=== PATIENT | male | born 1950 | race Caucasian/White ===

== ENCOUNTER → 2018-01-22 | Outpatient (CLI) | payer MEDICARE, OTHER ==
--- NOTE | 2018-01-22 15:44 | US ---
EXAMINATION TYPE: US kidneys/renal and bladder DATE OF EXAM: 01/22/2018 COMPARISON: CLINICAL HISTORY: UTI R39.0. Hx of UTI's, Hx of prostate enlargement EXAM MEASUREMENTS: Right Kidney: 11.7 x 4.1 x 5.5 cm Left Kidney: 10.9 x 5.0 x 5.9 cm Post Void Residual Volume: 5.3 mL Right Kidney: Inferior cystic appearing lesion in renal sinus - 0.8 x 1.1 x 0.8 cm Left Kidney: Lobulated contour of the left kidney may relate to parenchymal scarring. Bladder: Prostate seen protruding within the bladder. Prostate measuring about = 6.6 x 3.3 x 3.4 cm . There is a serrated appearance of the urinary bladder contour, which can be seen in chronic outlet obstruction. Bilateral Jets not visualized Normal Post Void Residual: Yes There is no evidence for hydronephrosis at this point in time. No nephrolithiasis is seen. No raya s are identified. The urinary bladder is anechoic. IMPRESSION: 1. Undulating and serrated contour of the urinary bladder that can be seen as sequela of chronic outl et obstruction given the patient's prostatic enlargement and impression upon the urinary bladder. 2. Benign-appearing left renal sinus cyst.
== END | disposition home or self-care (01) ==
LOC: RADUSWWP 14:07
PROVIDERS: ATTEND Family Medicine
DX: N28.1 Cyst of kidney, acquired (principal); N40.1 Benign prostatic hyperplasia with lower urinary tract symptoms; N13.9 Obstructive and reflux uropathy, unspecified; N32.89 Other specified disorders of bladder
CPT/HCPCS: 76770

== ENCOUNTER → 2018-05-11 | Outpatient (CLI) | payer MEDICARE, OTHER ==
--- NOTE | 2018-05-11 16:45 | MR ---
EXAMINATION TYPE: MR knee LT wo con DATE OF EXAM: 05/11/2018 COMPARISON: None HISTORY: Left knee pain TECHNIQUE: Multiplanar, multisequence imaging of the left knee is performed without IV contrast. FINDINGS: MEDIAL MENISCUS: There is increased signal within the posterior horn medial meniscus compatible with internal derangement or degenerative change. Anterior horn medial meniscus has very minimal medial in creased signal which may be degenerative in nature. LATERAL MENISCUS: Very minimal increased signal may be within the posterior horn lateral meniscus whi ch can be degenerative in nature. Anterior horn lateral meniscus appears intact. CRUCIATE LIGAMENTS: The anterior and posterior cruciate ligaments are intact and unremarkable. COLLATERAL LIGAMENTS: The medial collateral ligament and lateral collateral ligament complex are inta ct and unremarkable. EXTENSOR MECHANISM: Visualized quadriceps and patellar tendons are intact. EFFUSION: No significant suprapatellar joint effusion. POPLITEAL CYST: No popliteal/dailey cyst. TRICOMPARTMENT SPACES: Preserved CARTILAGE: Minimal thinning may be present within the medial and lateral compartment joint spaces. Th ere is loss of articular cartilage along the superior posterior patella. Some increased osseous signa l is within the patella. The articular surface of the anterior femur appears intact. Correlate for ch ondromalacia. BONE MARROW SIGNAL: No additional focal signal abnormality within the osseous structures is evident. OTHER: No additional significant abnormality is appreciated. IMPRESSION: 1. Loss of the posterior superior patellar cartilage. There is some adjacent signal abnormality withi n the posterior patella. Correlate for chondromalacia. 2. Mild internal derangement or degenerative change of the posterior medial lateral menisci.
== END ==
LOC: RADMRIMAIN 11:06
PROVIDERS: ATTEND Family Medicine
DX: M23.322 Other meniscus derangements, posterior horn of medial meniscus, left knee (principal); M23.352 Other meniscus derangements, posterior horn of lateral meniscus, left knee

== ENCOUNTER 2020-08-10 18:07 | Emergency (ER) | payer MEDICARE, OTHER ==
[2020-08-10] MEDS ORDERED: SODIUM CHLORIDE 0.9% 1,000 ML IV STA (18:46)
[2020-08-10 19:21] LABS: Basophils % (A) 0 %; Eosinophils # (A) 0.3 k/uL (0-0.7); Eosinophils % (A) 3 %; HCT 50.6 % (39.0-53.0); Lymphocytes # (A) 0.2 k/uL (1.0-4.8); Lymphocytes % (A) 2 %; MCH 30.1 pg (25.0-35.0); MCHC 33.5 g/dL (31.0-37.0); MCV 89.9 fL (80.0-100.0); Mean Platelet Volume 7.3; Monocytes # (A) 0.5 k/uL (0-1.0); Monocytes % (A) 5 %; Neutrophils # (A) 8.1 k/uL (1.3-7.7); Neutrophils % (A) 89 %; Platelet Count 184 k/uL (150-450); RBC 5.62 m/uL (4.30-5.90); WBC 9.2 k/uL (3.8-10.6)
--- NOTE | 2020-08-10 19:33 | XR ---
EXAMINATION: XR chest 2V DATE AND TIME: 08/10/2020 7:21 PM CLINICAL INDICATION: PHH; fever weakness TECHNIQUE: Departmental protocol COMPARISON: 08/26/2009 FINDINGS: The lungs demonstrate a 5 cm ill-defined consolidative opacity medially within the left upper lobe. I n the left midlung zone laterally is a subtle 2 cm ill-defined opacity. Both these findings are not s een on the prior radiograph. The pleural spaces are negative. The cardiac silhouette is not enlarged. The remainder of the mediastinal silhouette is unremarkable. The skeletal structures and soft tissues are negative for acute findings. IMPRESSION: Two left-sided ill-defined pulmonary opacities, can correlate with a clinical diagnosis of developing bronchopneumonia.
[2020-08-10 19:34] LABS: ALT 20 U/L (4-49); AST 22 U/L (17-59); African American GFR (CKD) >90 (>60 ml/min/1.73 sqM); Albumin 3.9 g/dL (3.5-5.0); Alkaline Phosphatase 109 U/L (38-126); Anion Gap 11 mmol/L; Blood Urea Nitrogen 17 mg/dL (9-20); Calcium 9.5 mg/dL (8.4-10.2); Carbon Dioxide 23 mmol/L (22-30); Chloride 103 mmol/L (98-107); Glucose 129 mg/dL (74-99); Lipase 69 U/L (23-300); Non-African American GFR(CKD) 81 (>60 ml/min/1.73 sqM); Potassium 4.2 mmol/L (3.5-5.1); Sodium 137 mmol/L (137-145); Total Bilirubin 0.7 mg/dL (0.2-1.3); Total Protein 6.8 g/dL (6.3-8.2)
[2020-08-10 20:14] LABS: Appearance,Urine Clear (Clear); Bilirubin,Urine Negative (Negative); Blood,Urine Moderate (Negative); Color,Urine Yellow; Glucose,Urine (UA) Negative (Negative); Ketones,Urine 2+ (Negative); Leukocyte Esterase,Urine Small (Negative); Mucus,Urine Rare /hpf; Nitrite,Urine Negative (Negative); Protein,Urine 3+ (Negative); RBC,Urine 4 /hpf (0-5); Specific Gravity,Urine 1.024 (1.001-1.035); Squamous Epithelial Cell,Urine <1 /hpf (0-4); Urobilinogen,Urine <2.0 mg/dL (<2.0); WBC,Urine 32 /hpf (0-5)
[2020-08-10] MEDS ORDERED: SODIUM CHLORIDE 0.9% 500 ML 500 ML IV ONE (20:21)
[2020-08-10] MEDS ORDERED: SODIUM CHLORIDE 0.9% 1,000 ML IV ONE (20:21)
--- NOTE | 2020-08-10 20:24 | ED ---
Weakness HPI - General Chief complaint: Weakness Stated complaint: Abd pain/sweats/nausea Time Seen by Provider: 08/10/20 18:10 Source: patient Mode of arrival: ambulatory - History of Present Illness Initial comments: 6-year-old male with past history of MS who presents emergency Department with reported nausea and poor appetite. Patient reports to feeling generally weak for the past 3 days. Admits that he is able hold down water however has not been able to hold down any food. Reports to significant nausea with dry heaving. Denies emesis. Denies any abdominal pain. No chest pain or shortness of breath. Denies cough. No sick contacts with similar symptoms. Admits that his urine has been darker in coloration. He does straight cath due to history of BPH. Denies diarrhea, constipation, melenic stools or hematochezia. Admits to chills however has not recorded any fevers at home. No contact with Covid positive contacts. No other alleviating, precipitating or modifying factors - Related Data Previous Rx's Medication Instructions Recorded Levofloxacin [Levaquin] 750 mg PO DAILY 1 Days #5 tab 08/10/20 Ondansetron Odt [Zofran Odt] 4 mg PO Q8HR PRN #10 tab 08/10/20 Allergies Allergy/AdvReac Type Severity Reaction Status Date / Time No Known Allergies Allergy Verified 08/10/20 18:13 Review of Systems ROS Statement: Those systems with pertinent positive or pertinent negative responses have been documented in the HPI. ROS Other: All systems not noted in ROS Statement are negative. Past Medical History Past Medical History: GERD/Reflux Additional Past Medical History / Comment(s): MS History of Any Multi-Drug Resistant Organisms: None Reported Past Surgical History: Hernia Repair Additional Past Surgical History / Comment(s): lung surgery. Past Psychological History: Depression Smoking Status: Never smoker Past Alcohol Use History: Occasional Past Drug Use History: None Reported General Exam General appearance: alert, in no apparent distress Head exam: Present: atraumatic, normocephalic, normal inspection Eye exam: Present: normal appearance, PERRL, EOMI. Absent: scleral icterus, conjunctival injection, periorbital swelling ENT exam: Present: normal exam, mucous membranes moist Neck exam: Present: normal inspection. Absent: tenderness, meningismus, lymphadenopathy Respiratory exam: Present: normal lung sounds bilaterally. Absent: respiratory distress, wheezes, rales, rhonchi, stridor Cardiovascular Exam: Present: normal rhythm, tachycardia, normal heart sounds. Absent: systolic murmur, diastolic murmur, rubs, gallop, clicks GI/Abdominal exam: Present: soft, normal bowel sounds. Absent: distended, tenderness, guarding, rebound, rigid Extremities exam: Present: normal inspection, full ROM, normal capillary refill. Absent: tenderness, pedal edema, joint swelling, calf tenderness Back exam: Present: normal inspection Neurological exam: Present: alert, oriented X3, CN II-XII intact Psychiatric exam: Present: normal affect, normal mood Skin exam: Present: warm, dry, intact, normal color. Absent: rash Course Vital Signs 08/10/20 08/10/20 18:08 21:08 Temperature 100 F H 99.6 F Pulse Rate 124 H 100 Respiratory 18 19 Rate Blood Pressure 138/87 151/96 O2 Sat by Pulse 96 96 Oximetry EKG Findings - EKG Comments: EKG Findings:: EKG demonstrates sinus tachycardia with a ventricular rate of 113. [place] interval 162. QRS 80. QTC of 427. No acute ST segment elevations or depressions concerning for ischemic changes Medical Decision Making - Medical Decision Making Upon arrival patient was placed into room 7. A history of physical exam was performed. Patient does have a temperature 100F. Pulse rate is 124. IV is established. Patient was given a 2500 mL bolus of normal saline. Laboratory studies were conducted and patient is swabbed for Covid. He is sent for chest x-ray as well as a CT of his abdomen and pelvis. Patient does straight cath himself for a urine specimen which demonstrates 32 white blood cells with rare mucous. Covid not detected. Chest x-ray does demonstrate to left-sided ill- defined pulmonary opacities which can correlate with developing bronchopneumonia. CT of the patient's abdomen and pelvis radiates evidence of cystitis with marked prostate hypertrophic mass effect upon the urinary bladder. Patient was given a dose of Zofran. He is able to tolerate fluids by mouth. I did discuss diagnosis, differential treatment options. Patient does not want remain hospitalized at this time. He does have improvement to his heart rate down to 96. Temp is 99.6. Blood cultures and urine cultures are sent. The patient was given a dose of Rocephin and azithromycin. I did discuss the diagnosis and treatment plan. Patient will be discharged home at this time on Levaquin for his pneumonia and UTI. Patient will follow up with his primary care doctor in 2-4 days for reevaluation. Daughter is at bedside and agrees to this treatment plan. Strict return parameters were given to the patient that he must return for any new or worsening symptoms. Patient given a Zofran starter pack to go home. Patient discharged in stable condition - Lab Data Result diagrams: 08/10/20 19:05 08/10/20 19:05 Lab Results 08/10/20 08/10/20 08/10/20 Range/Units 19:05 19:05 19:05 WBC 9.2 (3.8-10.6) k/uL RBC 5.62 (4.30-5.90) m/uL Hgb 17.0 (13.0-17.5) gm/dL Hct 50.6 (39.0-53.0) % MCV 89.9 (80.0-100.0) fL MCH 30.1 (25.0-35.0) pg MCHC 33.5 (31.0-37.0) g/dL RDW 13.0 (11.5-15.5) % Plt Count 184 (150-450) k/uL MPV 7.3 Neutrophils % 89 % Lymphocytes % 2 % Monocytes % 5 % Eosinophils % 3 % Basophils % 0 % Neutrophils # 8.1 H (1.3-7.7) k/uL Lymphocytes # 0.2 L (1.0-4.8) k/uL Monocytes # 0.5 (0-1.0) k/uL Eosinophils # 0.3 (0-0.7) k/uL Basophils # 0.0 (0-0.2) k/uL Sodium 137 (137-145) mmol/L Potassium 4.2 (3.5-5.1) mmol/L Chloride 103 (98-107) mmol/L Carbon Dioxide 23 (22-30) mmol/L Anion Gap 11 mmol/L BUN 17 (9-20) mg/dL Creatinine 0.95 (0.66-1.25) mg/dL Est GFR (CKD-EPI)AfAm >90 (>60 ml/min/1.73 sqM) Est GFR (CKD-EPI)NonAf 81 (>60 ml/min/1.73 sqM) Glucose 129 H (74-99) mg/dL Plasma Lactic Acid Dmitry (0.7-2.0) mmol/L Calcium 9.5 (8.4-10.2) mg/dL Total Bilirubin 0.7 (0.2-1.3) mg/dL AST 22 (17-59) U/L ALT 20 (4-49) U/L Alkaline Phosphatase 109 (38-126) U/L Troponin I (0.000-0.034) ng/mL Total Protein 6.8 (6.3-8.2) g/dL Albumin 3.9 (3.5-5.0) g/dL Lipase 69 (23-300) U/L Urine Color Urine Appearance (Clear) Urine pH (5.0-8.0) Ur Specific [place] (1.001-1.035) Urine Protein (Negative) Urine Glucose (UA) (Negative) Urine Ketones (Negative) Urine Blood (Negative) Urine Nitrite (Negative) Urine Bilirubin (Negative) Urine Urobilinogen (<2.0) mg/dL Ur Leukocyte Esterase (Negative) Urine RBC (0-5) /hpf Urine WBC (0-5) /hpf Ur Squamous Epith Cells (0-4) /hpf Urine Mucus (None) /hpf Coronavirus (PCR) Not Detected (Not Detectd) 08/10/20 08/10/20 08/10/20 Range/Units 19:05 19:05 19:05 WBC (3.8-10.6) k/uL RBC (4.30-5.90) m/uL Hgb (13.0-17.5) gm/dL Hct (39.0-53.0) % MCV (80.0-100.0) fL MCH (25.0-35.0) pg MCHC (31.0-37.0) g/dL RDW (11.5-15.5) % Plt Count (150-450) k/uL MPV Neutrophils % % Lymphocytes % % Monocytes % % Eosinophils % % Basophils % % Neutrophils # (1.3-7.7) k/uL Lymphocytes # (1.0-4.8) k/uL Monocytes # (0-1.0) k/uL Eosinophils # (0-0.7) k/uL Basophils # (0-0.2) k/uL Sodium (137-145) mmol/L Potassium (3.5-5.1) mmol/L Chloride (98-107) mmol/L Carbon Dioxide (22-30) mmol/L Anion Gap mmol/L BUN (9-20) mg/dL Creatinine (0.66-1.25) mg/dL Est GFR (CKD-EPI)AfAm (>60 ml/min/1.73 sqM) Est GFR (CKD-EPI)NonAf (>60 ml/min/1.73 sqM) Glucose (74-99) mg/dL Plasma Lactic Acid Dmitry 1.9 (0.7-2.0) mmol/L Calcium (8.4-10.2) mg/dL Total Bilirubin (0.2-1.3) mg/dL AST (17-59) U/L ALT (4-49) U/L Alkaline Phosphatase (38-126) U/L Troponin I <0.012 (0.000-0.034) ng/mL Total Protein (6.3-8.2) g/dL Albumin (3.5-5.0) g/dL Lipase (23-300) U/L Urine Color Yellow Urine Appearance Clear (Clear) Urine pH 6.0 (5.0-8.0) Ur Specific [place] 1.024 (1.001-1.035) Urine Protein 3+ H (Negative) Urine Glucose (UA) Negative (Negative) Urine Ketones 2+ H (Negative) Urine Blood Moderate H (Negative) Urine Nitrite Negative (Negative) Urine Bilirubin Negative (Negative) Urine Urobilinogen <2.0 (<2.0) mg/dL Ur Leukocyte Esterase Small H (Negative) Urine RBC 4 (0-5) /hpf Urine WBC 32 H (0-5) /hpf Ur Squamous Epith Cells <1 (0-4) /hpf Urine Mucus Rare H (None) /hpf Coronavirus (PCR) (Not Detectd) Disposition Clinical Impression: Nausea & vomiting, Tachycardia, CAP (community acquired pneumonia), UTI (urinary tract infection), Self-catheterizes urinary bladder Disposition: HOME SELF-CARE Condition: Stable Instructions (If sedation given, give patient instructions): Urinary Tract Infection in Men (ED), Bacterial Pneumonia (ED) Additional Instructions: Please follow-up with your primary care doctor in 2-4 days. Return to the ED for any new or worsening symptoms. Prescriptions: Levofloxacin [Levaquin] 750 mg PO DAILY 1 Days #5 tab Ondansetron Odt [Zofran Odt] 4 mg PO Q8HR PRN #10 tab PRN Reason: Nausea Is patient prescribed a controlled substance at d/c from ED?: No Referrals: Gucci Barrera MD [Primary Care Provider] - 1-2 days Time of Disposition: 22:02
[2020-08-10] MEDS ORDERED: ONDANSETRON 4 MG/2 ML VIAL IVP STA (20:47)
--- NOTE | 2020-08-10 20:55 | CT ---
EXAMINATION TYPE: CT abdomen pelvis w con DATE OF EXAM: 08/10/2020 COMPARISON: None HISTORY: Nausea, weakness and fever. CT DLP: 938.2 mGycm Automated exposure control for dose reduction was used. TECHNIQUE: Helical acquisition of images was performed from the lung bases through the pelvis. CONTRAST: Performed without Oral Contrast and with IV Contrast, patient injected with 100ml mL of Iso rogelio 300. FINDINGS: LUNG BASES: No acute process. LIVER/GB: No significant abnormality is appreciated. Multiple liver cysts noted. PANCREAS: No significant abnormality is seen. SPLEEN: No significant abnormality is seen. ADRENALS: No significant abnormality is seen. KIDNEYS: No significant abnormality is seen. FREE AIR: No free air is visualized. RETROPERITONEAL ADENOPATHY: None visualized REPRODUCTIVE ORGANS: There is a prominent prostate enlargement. URINARY BLADDER: The prostate is markedly enlarged and demonstrates marked upward mass effect upon t he urinary bladder. The urinary bladder wall is circumferentially thickened and indistinct, and the i nterface with the urinary bladder wall with the perivesical adipose shows a diffuse mild reticulation pattern, consistent with mild edematous change. These findings can correlate with a clinical diagnos is of cystitis. PELVIC ADENOPATHY: None visualized. OSSEOUS STRUCTURES: No significant abnormality is seen. BOWEL: No significant abnormality is seen. OTHER: No acute vascular findings. IMPRESSION: CT EVIDENCE OF CHOLECYSTITIS, WITH MARKED PROSTATE HYPERTROPHIC MASS EFFECT UPON THE URINARY BLADDER.
[2020-08-10 21:12] VITALS: BP 151/96; PULSE 100; RESP 19; TEMP 99.6
[2020-08-10] MEDS ORDERED: cefTRIAXone IN SWFI 1,000 MG/10 ML SYRINGE IVP STA (21:56)
[2020-08-10] MEDS ORDERED: ONDANSETRON 4 MG ODT STARTER PACK 2 TAB BTL PO STA (21:57)
[2020-08-10] MEDS ORDERED: AZITHROMYCIN 500 MG TAB PO STA (21:58)
== END 2020-08-10 22:15 | disposition home or self-care (01) ==
LOC: EC 18:07
DX: J18.9 Pneumonia, unspecified organism (principal); R00.0 Tachycardia, unspecified; N30.90 Cystitis, unspecified without hematuria; R11.2 Nausea with vomiting, unspecified; N42.89 Other specified disorders of prostate; Z20.822 Contact with and (suspected) exposure to COVID-19
CPT/HCPCS: 36415; 93005; 80053; 83605; 83690; 84484; 85025; 81001; 87040; 87086; 87635; 71046; 74177; 99285; 96374; 96375; 96361 ×2; J2405; J0696; S0119; Q9967

== ENCOUNTER 2021-04-13 12:35 | Emergency (ER) | payer MEDICARE, OTHER ==
[2021-04-13] MEDS ORDERED: IBUPROFEN 400 MG TAB PO STA (14:37)
[2021-04-13] MEDS ORDERED: SODIUM CHLORIDE 0.9% 1,000 ML IV STA (14:37)
[2021-04-13] MEDS ORDERED: ACETAMINOPHEN TAB 500 MG TAB PO STA (14:37)
[2021-04-13] MEDS ORDERED: ONDANSETRON 4 MG/2 ML VIAL IVP STA (14:38)
[2021-04-13 15:17] LABS: Appearance,Urine Turbid (Clear); Bacteria,Urine Many /hpf; Bilirubin,Urine Negative (Negative); Blood,Urine Moderate (Negative); Color,Urine Yellow; Glucose,Urine (UA) Negative (Negative); Ketones,Urine Negative (Negative); Leukocyte Esterase,Urine Large (Negative); Mucus,Urine Occasional /hpf; Nitrite,Urine Negative (Negative); Protein,Urine 3+ (Negative); RBC,Urine 17 /hpf (0-5); Squamous Epithelial Cell,Urine 2 /hpf (0-4); Urobilinogen,Urine <2.0 mg/dL (<2.0); WBC,Urine >182 /hpf (0-5)
[2021-04-13 15:57] LABS: Basophils % (A) 0 %; Eosinophils # (A) 0.1 k/uL (0-0.7); Eosinophils % (A) 1 %; HGB 16.8 gm/dL (13.0-17.5); Lymphocytes # (A) 0.5 k/uL (1.0-4.8); Lymphocytes % (A) 5 %; MCH 32.1 pg (25.0-35.0); MCV 91.6 fL (80.0-100.0); Mean Platelet Volume 8.2; Monocytes # (A) 0.7 k/uL (0-1.0); Monocytes % (A) 7 %; Neutrophils # (A) 8.6 k/uL (1.3-7.7); Neutrophils % (A) 86 %; Platelet Count 156 k/uL (150-450); RBC 5.24 m/uL (4.30-5.90); RDW 13.2 % (11.5-15.5); WBC 10.1 k/uL (3.8-10.6)
[2021-04-13] MEDS ORDERED: cefTRIAXone IN SWFI 1,000 MG/10 ML SYRINGE IVP STA (16:42)
--- NOTE | 2021-04-13 17:12 | ED ---
General Adult HPI - General Chief complaint: Weakness Stated complaint: Diarhhea,Abd Pain Time Seen by Provider: 04/13/21 14:06 Source: patient, RN notes reviewed Mode of arrival: ambulatory Limitations: no limitations - History of Present Illness Initial comments: Patient is a 70-year-old male with history of GERD, presenting to the emergency Department with complaints of not feeling well over the past week. He states he's been having some fatigue, nausea, diarrhea and just not feeling right over the past week. He does self cath, he's been doing this for many years secondary to an enlarged prostate. He states he had a UTI many years ago and states he felt similar. Urinary frequency, some mild dysuria. He denies any cough, no chest pain, no shortness of breath, no congestion. He states his appetite has been low secondary to the nausea. He has not been on any recent antibiotics, no history of C. diff. He has been trying to drink fluids. He did not take any Tylenol or Motrin today. Patient has no further complaints at this time. He did arrive slightly febrile at 100.7, tachycardia at 113, rest of vitals normal. - Related Data Home Medications Medication Instructions Recorded Confirmed Atorvastatin [Lipitor] 10 mg PO DAILY 04/13/21 04/13/21 FLUoxetine HCL [PROzac] 20 mg PO DAILY 04/13/21 04/13/21 Famotidine [Pepcid] 40 mg PO BID 04/13/21 04/13/21 Omeprazole 40 mg PO DAILY 04/13/21 04/13/21 Previous Rx's Medication Instructions Recorded Cephalexin [Keflex] 500 mg PO Q6HR 7 Days #28 cap 04/13/21 Ondansetron Odt [Zofran Odt] 4 mg PO Q8HR PRN #10 tab 04/13/21 Allergies Allergy/AdvReac Type Severity Reaction Status Date / Time No Known Allergies Allergy Verified 04/13/21 17:37 Review of Systems ROS Statement: Those systems with pertinent positive or pertinent negative responses have been documented in the HPI. ROS Other: All systems not noted in ROS Statement are negative. Past Medical History Past Medical History: GERD/Reflux Additional Past Medical History / Comment(s): MS History of Any Multi-Drug Resistant Organisms: None Reported Past Surgical History: Hernia Repair Additional Past Surgical History / Comment(s): lung surgery. Past Psychological History: Depression Smoking Status: Never smoker Past Alcohol Use History: Occasional Past Drug Use History: None Reported General Exam - General Exam Comments Initial Comments: GENERAL: Patient is well-developed and well-nourished. Patient is nontoxic and in no acute distress. HEAD: Atraumatic, normocephalic. EYES: Pupils equal round and reactive to light, extraocular movements intact, sclera anicteric, conjunctiva are normal. Eyelids were unremarkable. ENT: Moist mucous membranes. NECK: Normal range of motion, supple without lymphadenopathy or JVD. LUNGS: Unlabored respirations. Breath sounds clear to auscultation bilaterally and equal. No wheezes rales or rhonchi. HEART: Regular rate and rhythm without murmurs, rubs or gallops. ABDOMEN: Soft, mild suprapubic tenderness, normoactive bowel sounds. No guarding, no rebound. No masses appreciated. : Deferred MUSCULOSKELETAL: Normal extremities with adequate strength and normal range of motion, no pitting or edema. No clubbing or cyanosis. NEUROLOGICAL: Patient is alert and oriented x 3. Motor and sensory are also intact. Cranial nerves II through XII grossly intact. Symmetrical smile. Normal speech, normal gait. PSYCH: Normal mood, normal affect. SKIN: Warm, Dry, normal turgor, no rashes or lesions noted. Limitations: no limitations Course Vital Signs 04/13/21 04/13/21 13:56 18:13 Temperature 100.7 F H 98 F Pulse Rate 114 H 78 Respiratory 20 18 Rate Blood Pressure 133/86 142/89 O2 Sat by Pulse 96 97 Oximetry Medical Decision Making - Medical Decision Making Patient is a 70-year-old male here for generalized weakness, mild fever, diarrhea and some suprapubic discomfort over the past week. He does self cath secondary to enlarged prostate. She did arrive slightly febrile at 100.7, tachycardia at 114, rest ofvitals normal. No acute findings on exam other than some mild suprapubic discomfort. Labs reveal a normal white count, kidney function is stable, lactic acid is normal. Urine did reveal large amount of leukocyte [place], WBCs and clumps. Urine culture is pending. Rapid Covid is negative. Patient was given fluids, Tylenol and Motrin for his fever as well as 2 g of Rocephin. He does report improvement in his symptoms. His vital signs have improved. Patient is stable for discharge. I will continue him on Keflex and recommended following up with his primary care in the next few days. [place] for continued fever and bodyaches, I will send him with some Zofran for any additional nausea. I did attempt to get a stool sample today however patient was unable to leave 1. I recommended starting Imodium for the diarrhea. He is agreeable to this plan of care. Return parameters were discussed with him and he verbalized understanding. Case discussed with Dr. Damian. - Lab Data Result diagrams: 04/13/21 15:24 04/13/21 17:57 Lab Results 04/13/21 04/13/21 04/13/21 Range/Units 15:04 15:24 15:24 WBC 10.1 (3.8-10.6) k/uL RBC 5.24 (4.30-5.90) m/uL Hgb 16.8 (13.0-17.5) gm/dL Hct 48.0 (39.0-53.0) % MCV 91.6 (80.0-100.0) fL MCH 32.1 (25.0-35.0) pg MCHC 35.0 (31.0-37.0) g/dL RDW 13.2 (11.5-15.5) % Plt Count 156 (150-450) k/uL MPV 8.2 Neutrophils % 86 % Lymphocytes % 5 % Monocytes % 7 % Eosinophils % 1 % Basophils % 0 % Neutrophils # 8.6 H (1.3-7.7) k/uL Lymphocytes # 0.5 L (1.0-4.8) k/uL Monocytes # 0.7 (0-1.0) k/uL Eosinophils # 0.1 (0-0.7) k/uL Basophils # 0.0 (0-0.2) k/uL Sodium (137-145) mmol/L Potassium (3.5-5.1) mmol/L Chloride (98-107) mmol/L Carbon Dioxide (22-30) mmol/L Anion Gap mmol/L BUN (9-20) mg/dL Creatinine (0.66-1.25) mg/dL Est GFR (CKD-EPI)AfAm (>60 ml/min/1.73 sqM) Est GFR (CKD-EPI)NonAf (>60 ml/min/1.73 sqM) Glucose (74-99) mg/dL Plasma Lactic Acid Dmitry 1.3 (0.7-2.0) mmol/L Calcium (8.4-10.2) mg/dL Total Bilirubin (0.2-1.3) mg/dL AST (17-59) U/L ALT (4-49) U/L Alkaline Phosphatase (38-126) U/L Total Protein (6.3-8.2) g/dL Albumin (3.5-5.0) g/dL Lipase (23-300) U/L Urine Color Yellow Urine Appearance Turbid (Clear) Urine pH 6.0 (5.0-8.0) Ur Specific [place] 1.020 (1.001-1.035) Urine Protein 3+ H (Negative) Urine Glucose (UA) Negative (Negative) Urine Ketones Negative (Negative) Urine Blood Moderate H (Negative) Urine Nitrite Negative (Negative) Urine Bilirubin Negative (Negative) Urine Urobilinogen <2.0 (<2.0) mg/dL Ur Leukocyte Esterase Large H (Negative) Urine RBC 17 H (0-5) /hpf Urine WBC >182 H (0-5) /hpf Urine WBC Clumps Many H (None) /hpf Ur Squamous Epith Cells 2 (0-4) /hpf Urine Bacteria Many H (None) /hpf Urine Mucus Occasional H (None) /hpf Coronavirus (PCR) (Not Detectd) 04/13/21 04/13/21 Range/Units 15:24 17:57 WBC (3.8-10.6) k/uL RBC (4.30-5.90) m/uL Hgb (13.0-17.5) gm/dL Hct (39.0-53.0) % MCV (80.0-100.0) fL MCH (25.0-35.0) pg MCHC (31.0-37.0) g/dL RDW (11.5-15.5) % Plt Count (150-450) k/uL MPV Neutrophils % % Lymphocytes % % Monocytes % % Eosinophils % % Basophils % % Neutrophils # (1.3-7.7) k/uL Lymphocytes # (1.0-4.8) k/uL Monocytes # (0-1.0) k/uL Eosinophils # (0-0.7) k/uL Basophils # (0-0.2) k/uL Sodium 137 (137-145) mmol/L Potassium 3.9 (3.5-5.1) mmol/L Chloride 105 (98-107) mmol/L Carbon Dioxide 24 (22-30) mmol/L Anion Gap 8 mmol/L BUN 23 H (9-20) mg/dL Creatinine 1.14 (0.66-1.25) mg/dL Est GFR (CKD-EPI)AfAm 75 (>60 ml/min/1.73 sqM) Est GFR (CKD-EPI)NonAf 65 (>60 ml/min/1.73 sqM) Glucose 106 H (74-99) mg/dL Plasma Lactic Acid Dmitry (0.7-2.0) mmol/L Calcium 9.1 (8.4-10.2) mg/dL Total Bilirubin 0.6 (0.2-1.3) mg/dL AST 19 (17-59) U/L ALT 16 (4-49) U/L Alkaline Phosphatase 95 (38-126) U/L Total Protein 6.5 (6.3-8.2) g/dL Albumin 3.6 (3.5-5.0) g/dL Lipase 74 (23-300) U/L Urine Color Urine Appearance (Clear) Urine pH (5.0-8.0) Ur Specific [place] (1.001-1.035) Urine Protein (Negative) Urine Glucose (UA) (Negative) Urine Ketones (Negative) Urine Blood (Negative) Urine Nitrite (Negative) Urine Bilirubin (Negative) Urine Urobilinogen (<2.0) mg/dL Ur Leukocyte Esterase (Negative) Urine RBC (0-5) /hpf Urine WBC (0-5) /hpf Urine WBC Clumps (None) /hpf Ur Squamous Epith Cells (0-4) /hpf Urine Bacteria (None) /hpf Urine Mucus (None) /hpf Coronavirus (PCR) Not Detected (Not Detectd) Disposition Clinical Impression: UTI (urinary tract infection), Diarrhea Disposition: HOME SELF-CARE Condition: Stable Instructions (If sedation given, give patient instructions): Urinary Tract Infection in Men (ED) Additional Instructions: Please return to the Emergency Department if symptoms worsen or any other concerns. Please take antibiotics as prescribed, finish entire course. May take Tylenol and/or Motrin for fevers, may alternate between the 2 every 4 hours. Recommend increasing your fluid intake. Take Zofran for any nausea or vomiting. Follow-up with your primary care in the next few days. Prescriptions: Cephalexin [Keflex] 500 mg PO Q6HR 7 Days #28 cap Ondansetron Odt [Zofran Odt] 4 mg PO Q8HR PRN #10 tab PRN Reason: Nausea Is patient prescribed a controlled substance at d/c from ED?: No Referrals: Lukas Barrera MD [Primary Care Provider] - 1-2 days Time of Disposition: 18:40
[2021-04-13 18:16] VITALS: BP 142/89; PULSE 78; RESP 18; TEMP 98
[2021-04-13 18:31] LABS: Albumin 3.6 g/dL (3.5-5.0); Calcium 9.1 mg/dL (8.4-10.2); Potassium 3.9 mmol/L (3.5-5.1); Total Bilirubin 0.6 mg/dL (0.2-1.3); Total Protein 6.5 g/dL (6.3-8.2)
== END 2021-04-13 19:16 | disposition home or self-care (01) ==
LOC: EC 12:35
DX: N39.0 Urinary tract infection, site not specified (principal); R19.7 Diarrhea, unspecified; K21.9 Gastro-esophageal reflux disease without esophagitis; F32.9 Major depressive disorder, single episode, unspecified; Z20.822 Contact with and (suspected) exposure to COVID-19
CPT/HCPCS: 99284; 96374; 96375; 96361; 36415; 80053; 83605; 83690; 85025; 81001; 87086; 87077; 87186; 87635; J2405; J0696

== ENCOUNTER 2021-04-24 10:11 | Emergency (ER) | payer MEDICARE, OTHER ==
[2021-04-24 10:26] VITALS: BP 125/84; PULSE 110; RESP 18; TEMP 97.7
[2021-04-24 11:03] LABS: Appearance,Urine Turbid (Clear); Bacteria,Urine Rare /hpf; Bilirubin,Urine Negative (Negative); Blood,Urine Moderate (Negative); Color,Urine Yellow; Glucose,Urine (UA) Negative (Negative); Ketones,Urine Negative (Negative); Leukocyte Esterase,Urine Large (Negative); Mucus,Urine Rare /hpf; Nitrite,Urine Positive (Negative); Protein,Urine 2+ (Negative); RBC,Urine 67 /hpf (0-5); Urobilinogen,Urine <2.0 mg/dL (<2.0); WBC,Urine >182 /hpf (0-5)
--- NOTE | 2021-04-24 14:20 | ED ---
Abdominal Pain HPI - General Chief Complaint: Abdominal Pain Stated Complaint: Blood in urine Time Seen by Provider: 04/24/21 14:12 Source: patient, RN notes reviewed Mode of arrival: ambulatory Limitations: no limitations - History of Present Illness Initial Comments: 70-year-old male presents emergency Department chief complaint of possible UTI. Patient notes some blood in his urine yesterday. Patient states he has been self cathing last 5-6 years. Patient states that he was recently here was on a x-ray UTI states that he felt that it may have never gone away. Patient denies any fevers chills he had mild discomfort to his right side that is not present currently. No nausea vomiting diarrhea constipation no other complaints. - Related Data Home Medications Medication Instructions Recorded Confirmed Atorvastatin [Lipitor] 10 mg PO DAILY 04/13/21 04/13/21 FLUoxetine HCL [PROzac] 20 mg PO DAILY 04/13/21 04/13/21 Famotidine [Pepcid] 40 mg PO BID 04/13/21 04/13/21 Omeprazole 40 mg PO DAILY 04/13/21 04/13/21 Previous Rx's Medication Instructions Recorded Cephalexin [Keflex] 500 mg PO Q6HR 7 Days #28 cap 04/13/21 Ondansetron Odt [Zofran Odt] 4 mg PO Q8HR PRN #10 tab 04/13/21 Sulfamethox-Tmp 800-160Mg [Bactrim 1 each PO Q12HR #20 tab 04/24/21 Ds] Allergies Allergy/AdvReac Type Severity Reaction Status Date / Time No Known Allergies Allergy Verified 04/24/21 10:26 Review of Systems ROS Statement: Those systems with pertinent positive or pertinent negative responses have been documented in the HPI. ROS Other: All systems not noted in ROS Statement are negative. Past Medical History Past Medical History: GERD/Reflux Additional Past Medical History / Comment(s): MS History of Any Multi-Drug Resistant Organisms: None Reported Past Surgical History: Hernia Repair Additional Past Surgical History / Comment(s): lung surgery. Past Psychological History: Depression Smoking Status: Never smoker Past Alcohol Use History: Occasional Past Drug Use History: None Reported General Exam Limitations: no limitations General appearance: alert, in no apparent distress Head exam: Present: atraumatic, normocephalic, normal inspection Neck exam: Present: normal inspection, full ROM. Absent: tenderness, meningismus, lymphadenopathy Respiratory exam: Present: normal lung sounds bilaterally. Absent: respiratory distress, wheezes, rales, rhonchi, stridor Cardiovascular Exam: Present: regular rate, normal rhythm, normal heart sounds. Absent: systolic murmur, diastolic murmur, rubs, gallop, clicks GI/Abdominal exam: Present: soft, normal bowel sounds. Absent: distended, tenderness, guarding, rebound, rigid Back exam: Absent: CVA tenderness (R), CVA tenderness (L) Course Vital Signs 04/24/21 10:22 Temperature 97.7 F Pulse Rate 110 H Respiratory 18 Rate Blood Pressure 125/84 O2 Sat by Pulse 98 Oximetry Medical Decision Making - Medical Decision Making Patient has evidence of urinary tract infection nitrite positive. Patient had mild blood but no kidney stone like pain. Patient be discharged on oral antibiotics will follow-up with his urologist. - Lab Data Lab Results 04/24/21 Range/Units 10:34 Urine Color Yellow Urine Appearance Turbid (Clear) Urine pH 6.0 (5.0-8.0) Ur Specific [place] 1.020 (1.001-1.035) Urine Protein 2+ H (Negative) Urine Glucose (UA) Negative (Negative) Urine Ketones Negative (Negative) Urine Blood Moderate H (Negative) Urine Nitrite Positive (Negative) Urine Bilirubin Negative (Negative) Urine Urobilinogen <2.0 (<2.0) mg/dL Ur Leukocyte Esterase Large H (Negative) Urine RBC 67 H (0-5) /hpf Urine WBC >182 H (0-5) /hpf Urine WBC Clumps Many H (None) /hpf Urine Bacteria Rare H (None) /hpf Urine Mucus Rare H (None) /hpf Disposition Clinical Impression: UTI (urinary tract infection) Disposition: HOME SELF-CARE Condition: Stable Instructions (If sedation given, give patient instructions): Urinary Tract Infection in Men (ED) Additional Instructions: Please return to the Emergency Department if symptoms worsen or any other concerns. Prescriptions: Sulfamethox-Tmp 800-160Mg [Bactrim Ds] 1 each PO Q12HR #20 tab Is patient prescribed a controlled substance at d/c from ED?: No Referrals: Lukas Barrera MD [Primary Care Provider] - 1-2 days Time of Disposition: 14:18
== END 2021-04-24 14:29 | disposition home or self-care (01) ==
LOC: EC 10:11
DX: N39.0 Urinary tract infection, site not specified (principal); K21.9 Gastro-esophageal reflux disease without esophagitis; F32.A Depression, unspecified
CPT/HCPCS: 81001; 99283

== ENCOUNTER 2022-06-24 03:57 | Emergency (ER) | payer MEDICARE, OTHER ==
[2022-06-24 04:07] VITALS: BP 150/108; PULSE 85; RESP 16; TEMP 98.2
[2022-06-24] MEDS ORDERED: SODIUM CHLORIDE 0.9% 1,000 ML IV STA ×2 (04:09)
[2022-06-24] MEDS ORDERED: ONDANSETRON 4 MG/2 ML VIAL IVP STA (04:09)
--- NOTE | 2022-06-24 04:10 | ED ---
Weakness HPI - General Chief complaint: Nausea/Vomiting/Diarrhea Stated complaint: Diarrhea Time Seen by Provider: 06/24/22 04:03 Source: patient, RN notes reviewed, old records reviewed Mode of arrival: EMS Limitations: no limitations - History of Present Illness Initial comments: This is a 71-year-old male to the emergency department for evaluation today. Patient presents today for evaluation nausea, no active vomiting and diarrhea. Significant diarrhea has been throughout the day today. Copious amounts of diarrhea watery diarrhea. No fevers no sick contacts no travel history. Patient does not live with anyone and does not know anyone with similar symptoms. Patient denies chest pain or shortness of breath. States he had a mild episode of sweating prior to arrival. Patient felt significantly terrible was unable eat or drink no started he is significantly weak MD Complaint: generalized weakness (Significant diarrhea) -: hour(s) Location: generalized Severity: moderate Severity scale (1-10): 7 Consistency: constant Improves with: none Worsens with: none Context: recent illness Associated Symptoms: diaphoresis, loss of appetite, nausea/vomiting - Related Data Home Medications Medication Instructions Recorded Confirmed Atorvastatin [Lipitor] 10 mg PO DAILY 04/13/21 04/13/21 FLUoxetine HCL [PROzac] 20 mg PO DAILY 04/13/21 04/13/21 Famotidine [Pepcid] 40 mg PO BID 04/13/21 04/13/21 Omeprazole 40 mg PO DAILY 04/13/21 04/13/21 Previous Rx's Medication Instructions Recorded Cephalexin [Keflex] 500 mg PO Q6HR 7 Days #28 cap 04/13/21 Ondansetron Odt [Zofran Odt] 4 mg PO Q8HR PRN #10 tab 04/13/21 Sulfamethox-Tmp 800-160Mg [Bactrim 1 each PO Q12HR #20 tab 04/24/21 Ds] Allergies Allergy/AdvReac Type Severity Reaction Status Date / Time No Known Allergies Allergy Verified 04/24/21 10:26 Review of Systems ROS Statement: Those systems with pertinent positive or pertinent negative responses have been documented in the HPI. ROS Other: All systems not noted in ROS Statement are negative. Past Medical History Past Medical History: GERD/Reflux Additional Past Medical History / Comment(s): MS History of Any Multi-Drug Resistant Organisms: None Reported Past Surgical History: Hernia Repair Additional Past Surgical History / Comment(s): lung surgery. Past Psychological History: Depression Smoking Status: Never smoker Past Alcohol Use History: Occasional Past Drug Use History: None Reported General Exam Limitations: no limitations General appearance: alert, in no apparent distress Head exam: Present: atraumatic, normocephalic, normal inspection Eye exam: Present: normal appearance, PERRL, EOMI. Absent: scleral icterus, conjunctival injection, periorbital swelling ENT exam: Present: normal exam, mucous membranes moist Neck exam: Present: normal inspection. Absent: tenderness, meningismus, lymphadenopathy Respiratory exam: Present: normal lung sounds bilaterally. Absent: respiratory distress, wheezes, rales, rhonchi, stridor Cardiovascular Exam: Present: regular rate, normal rhythm, normal heart sounds. Absent: systolic murmur, diastolic murmur, rubs, gallop, clicks GI/Abdominal exam: Present: soft, normal bowel sounds. Absent: distended, tenderness, guarding, rebound, rigid Extremities exam: Present: normal inspection, full ROM, normal capillary refill. Absent: tenderness, pedal edema, joint swelling, calf tenderness Back exam: Present: normal inspection Neurological exam: Present: alert, oriented X3, CN II-XII intact Psychiatric exam: Present: normal affect, normal mood Skin exam: Present: warm, dry, intact, normal color. Absent: rash Course Vital Signs 06/24/22 04:01 Temperature 98.2 F Pulse Rate 85 Respiratory 16 Rate Blood Pressure 150/108 O2 Sat by Pulse 98 Oximetry - Reevaluation(s) Reevaluation #1: 06/24/22 05:12 Medical record is reviewed Reevaluation #2: 06/24/22 05:13 Patient symptoms are dramatically improved feels improved Reevaluation #3: 06/24/22 05:13 Patient informed of results and questions answered Reevaluation #4: 06/24/22 05:13 Differential Weakness: Hypoglycemia, shock, sepsis, hyponatremia, anemia, infection, NE, ETOH, adverse medicine reaction, overdose, stroke, this is not meant to be an all-inclusive list. Weakness Reevaluation #5: 06/24/22 05:13 Was pt. sent in by a medical professional or institution? @ -no Did you speak to anyone other than the patient for history? @ -no Did you review nursing and triage notes? @ -agree Were old charts reviewed? @ -prior ED visits Differential Diagnosis? @ -prior EKG interpreted by me (3pts min.)? @ -[none] X-rays interpreted by me (1pt min.)? @ -[none] CT interpreted by me (1pt min.)? @ -[none] U/S interpreted by me (1pt. min.)? @ -[none] What testing was considered but not performed? (CT, X-rays, U/S, labs)? Why? @ -no What meds were considered but not given? Why? @ -[none] Did you discuss the management of the patient with other professionals? @ -no Did you reconcile home meds? @ -[none] Was smoking cessation discussed for >3mins.? @ -[none] Was critical care preformed (if so, how long)? @ -[none] Were there social determinants of health that impacted care today? How? (Homelessness, low income, unemployed, alcoholism, drug addiction, transportation, low edu. Level, literacy, decrease access to med. care, custodial, rehab)? @ -no Was there de-escalation of care discussed even if they declined? (Discuss DNR or withdrawal of care, Hospice)? @ -no What co-morbidities impacted this encounter? (DM, HTN, Smoking, COPD, CAD, Cancer, CVA, Hep., AIDS, mental health diagnosis, sleep apnea, morbid obesity)? @ -no Was patient admitted / discharged? @ -dc Undiagnosed new problem with uncertain prognosis? @ -[none] Drug Therapy requiring intensive monitoring for toxicity (Heparin, Nitro, Insulin, Cardizem)? @ -[none] Were any procedures done? @ -[none] Diagnosis/symptom? @ -[default] Acute, or Chronic, or Acute on Chronic? @ -[default] Uncomplicated (without systemic symptoms) or Complicated (systemic symptoms)? @ -[default] Side effects of treatment? @ -[none] Exacerbation, Progression, or Severe Exacerbation] @ -[no] Poses a threat to life or bodily function? @ -[no] EKG Findings - EKG Comments: EKG Findings:: EKG shows sinus 87 VT 183 QRS 96 QTc 402 Medical Decision Making - Medical Decision Making 71 male to the emergency department for evaluation of severe diarrhea diarrheal illness. No abdominal pain no other complaints. Patient given hydration and symptomatically therapy here in the ER feels well and is okay for discharge - Lab Data Result diagrams: 06/24/22 04:06 06/24/22 04:06 Lab Results 06/24/22 06/24/22 06/24/22 Range/Units 04:06 04:06 04:06 WBC 13.2 H (3.8-10.6) k/uL RBC 5.88 (4.30-5.90) m/uL Hgb 17.9 H (13.0-17.5) gm/dL Hct 53.3 H (39.0-53.0) % MCV 90.6 (80.0-100.0) fL MCH 30.4 (25.0-35.0) pg MCHC 33.6 (31.0-37.0) g/dL RDW 12.9 (11.5-15.5) % Plt Count 204 (150-450) k/uL MPV 7.3 Neutrophils % 91 % Lymphocytes % 4 % Monocytes % 3 % Eosinophils % 1 % Basophils % 0 % Neutrophils # 12.0 H (1.3-7.7) k/uL Lymphocytes # 0.5 L (1.0-4.8) k/uL Monocytes # 0.4 (0-1.0) k/uL Eosinophils # 0.2 (0-0.7) k/uL Basophils # 0.0 (0-0.2) k/uL PT 11.1 (9.0-12.0) sec INR 1.1 (<1.2) APTT 22.4 (22.0-30.0) sec Sodium 140 (137-145) mmol/L Potassium 4.1 (3.5-5.1) mmol/L Chloride 108 H (98-107) mmol/L Carbon Dioxide 19 L (22-30) mmol/L Anion Gap 13 mmol/L BUN 26 H (9-20) mg/dL Creatinine 1.38 H (0.66-1.25) mg/dL Est GFR (CKD-EPI)AfAm 59 (>60 ml/min/1.73 sqM) Est GFR (CKD-EPI)NonAf 51 (>60 ml/min/1.73 sqM) Glucose 161 H (74-99) mg/dL Calcium 9.8 (8.4-10.2) mg/dL Phosphorus 2.6 (2.5-4.5) mg/dL Magnesium 1.7 (1.6-2.3) mg/dL Total Bilirubin 0.8 (0.2-1.3) mg/dL AST 31 (17-59) U/L ALT 27 (4-49) U/L Alkaline Phosphatase 133 H (38-126) U/L Troponin I (0.000-0.034) ng/mL Total Protein 8.0 (6.3-8.2) g/dL Albumin 4.8 (3.5-5.0) g/dL 06/24/22 Range/Units 04:06 WBC (3.8-10.6) k/uL RBC (4.30-5.90) m/uL Hgb (13.0-17.5) gm/dL Hct (39.0-53.0) % MCV (80.0-100.0) fL MCH (25.0-35.0) pg MCHC (31.0-37.0) g/dL RDW (11.5-15.5) % Plt Count (150-450) k/uL MPV Neutrophils % % Lymphocytes % % Monocytes % % Eosinophils % % Basophils % % Neutrophils # (1.3-7.7) k/uL Lymphocytes # (1.0-4.8) k/uL Monocytes # (0-1.0) k/uL Eosinophils # (0-0.7) k/uL Basophils # (0-0.2) k/uL PT (9.0-12.0) sec INR (<1.2) APTT (22.0-30.0) sec Sodium (137-145) mmol/L Potassium (3.5-5.1) mmol/L Chloride (98-107) mmol/L Carbon Dioxide (22-30) mmol/L Anion Gap mmol/L BUN (9-20) mg/dL Creatinine (0.66-1.25) mg/dL Est GFR (CKD-EPI)AfAm (>60 ml/min/1.73 sqM) Est GFR (CKD-EPI)NonAf (>60 ml/min/1.73 sqM) Glucose (74-99) mg/dL Calcium (8.4-10.2) mg/dL Phosphorus (2.5-4.5) mg/dL Magnesium (1.6-2.3) mg/dL Total Bilirubin (0.2-1.3) mg/dL AST (17-59) U/L ALT (4-49) U/L Alkaline Phosphatase (38-126) U/L Troponin I <0.012 (0.000-0.034) ng/mL Total Protein (6.3-8.2) g/dL Albumin (3.5-5.0) g/dL Disposition Clinical Impression: Dehydration, Gastroenteritis Disposition: HOME SELF-CARE Condition: Fair Instructions (If sedation given, give patient instructions): Acute Diarrhea (ED) Is patient prescribed a controlled substance at d/c from ED?: No Referrals: Gucci Barrera MD [Primary Care Provider] - 1-2 days Time of Disposition: 05:15
[2022-06-24 04:16] LABS: Basophils % (A) 0 %; Eosinophils # (A) 0.2 k/uL (0-0.7); Eosinophils % (A) 1 %; HCT 53.3 % (39.0-53.0); HGB 17.9 gm/dL (13.0-17.5); Lymphocytes # (A) 0.5 k/uL (1.0-4.8); Lymphocytes % (A) 4 %; MCH 30.4 pg (25.0-35.0); MCHC 33.6 g/dL (31.0-37.0); MCV 90.6 fL (80.0-100.0); Mean Platelet Volume 7.3; Monocytes # (A) 0.4 k/uL (0-1.0); Monocytes % (A) 3 %; Neutrophils % (A) 91 %; Platelet Count 204 k/uL (150-450); RBC 5.88 m/uL (4.30-5.90); RDW 12.9 % (11.5-15.5); WBC 13.2 k/uL (3.8-10.6)
[2022-06-24 04:27] LABS: Albumin 4.8 g/dL (3.5-5.0); Calcium 9.8 mg/dL (8.4-10.2); Magnesium 1.7 mg/dL (1.6-2.3); Phosphorus 2.6 mg/dL (2.5-4.5); Potassium 4.1 mmol/L (3.5-5.1); Total Bilirubin 0.8 mg/dL (0.2-1.3)
[2022-06-24 04:47] LABS: INR 1.1 (<1.2); Partial Thromboplastin Time 22.4 sec (22.0-30.0); Prothrombin Time 11.1 sec (9.0-12.0)
[2022-06-24] MEDS ORDERED: SODIUM CHLORIDE 0.9% 500 ML 500 ML IV STA (04:52)
[2022-06-24] MEDS ORDERED: DIPHENOX-ATROP STARTER PACK 8 TAB BTL PO STA (05:11)
[2022-06-24] MEDS ORDERED: traMADol 50 MG STARTER PACK 3 TAB BTL PO STA (05:11)
[2022-06-24] MEDS ORDERED: ONDANSETRON 4 MG ODT STARTER PACK 2 TAB BTL PO STA (05:11)
== END 2022-06-24 06:09 | disposition home or self-care (01) ==
LOC: EC 03:57
DX: E86.0 Dehydration (principal); K52.9 Noninfective gastroenteritis and colitis, unspecified; K21.9 Gastro-esophageal reflux disease without esophagitis; F32.A Depression, unspecified; Z79.899 Other long term (current) drug therapy
CPT/HCPCS: 36415; 80053; 83735; 84100; 84484; 85025; 85610; 85730; 99284; 96374; 96361 ×2; J2405; S0119

== ENCOUNTER → 2024-12-15 | Outpatient (CLI) | payer MEDICARE, OTHER ==
--- NOTE | 2024-12-15 08:17 | US ---
EXAMINATION TYPE: US carotid duplex BILAT DATE OF EXAM: 12/15/2024 COMPARISON: NONE CLINICAL INDICATION: Male, 74 years old with history of I65.29; Additional History: .... TECHNIQUE: Grayscale, color Doppler and spectral Doppler evaluation of the bilateral carotid systems and vertebral arteries. Indirect Doppler criteria was utilized. FINDINGS: EXAM MEASUREMENTS: RIGHT: Peak Systolic Velocity (PSV) cm/sec ----- Right CCA: 80.9 ----- Right ICA: 96.5 ----- Right ECA: 101.7 ICA/CCA ratio: 1.2 RIGHT: End Diastole cm/sec ----- Right CCA: 19.3 ----- Right ICA: 18.9 ----- Right ECA: 12.4 LEFT: Peak Systolic Velocity (PSV) cm/sec ----- Left CCA: 58.1 ----- Left ICA: 58.8 ----- Left ECA: 51.3 ICA/CCA ratio: 1.0 LEFT: End Diastole cm/sec ----- Left CCA: 14.0 ----- Left ICA: 21.8 ----- Left ECA: 8.0 VERTEBRALS (direction of flow): Right Vertebral: Antegrade Left Vertebral: Antegrade Rhythm: Normal [employer] NOTES: Limited study due to vessel tortuosity No elevated velocities or significant stenosis seen, plaque seen bilaterally Color Doppler imaging shows patency with blood flow throughout the carotid artery. Spectral waveforms are within normal limits. IMPRESSION: Right: No hemodynamically significant stenosis. Left: No hemodynamically significant stenosis. Criteria for Assigning % of Stenosis / Diameter reduction (Estimation based on the indirect measurements of the internal carotid artery velocities (ICA PSV). 1. Normal (no stenosis)=ICA PSV < 180 cm/s: ratio < 2.0: ICA EDV<40 cm/s. 2. Less than 50% stenosis=ICA PSV < 180 cm/s: ratio < 2.0: ICA EDV<40 cm/s. 3. 50 to 69% stenosis=ICA PSV of 180 to 230 cm/s: ration 2.0 ? 4.0: ICA EDV 40-100 cm/s. PSV 125-180 cm/sec and ICA/CCA PSV Ratio ? 2.0 is also consistent with 50-69% stenosis 4. Greater than 70% stenosis to near occlusion= ICA PSV > 230 cm/s: ratio > 4.0: ICA EDV > 100 cm/s. 5. Near occlusion= ICA PSV velocities may be low or undetectable: variable ratio and ICA EDV. 6. Total occlusion=unable to detect flow. [facility], , 12/15/2024 8:15 AM
== END | disposition home or self-care (01) ==
LOC: RADUSWWP 07:22
PROVIDERS: ATTEND Family Medicine
DX: I65.29 Occlusion and stenosis of unspecified carotid artery (principal)
CPT/HCPCS: 93880